=== PATIENT | female | born 2005 | race Caucasian/White ===

== ENCOUNTER 2024-01-15 11:03 | Day surgery (SDC) | payer OTHER, SELFPAY ==
[2024-01-15] VITALS (13 sets, daily range): BP systolic 107–153; BP diastolic 44–97; PULSE 94–125; RESP 12–22; TEMP 36.3–37; O2SAT 99–100
--- NOTE | ~2024-01-15 | CT_ITS ---
CT abdomen pelvis w con Ordering provider: Lyndsey Ralph History: 18 years Female with . RLQ pain . Comparison: None. Technique: CT abdomen and pelvis with IV and without oral contrast. Automated exposure control and it erative reconstruction technique were employed. The dose-length product was 307.14 mGy-cm. 100 mL Omnipaque 350 was given IV. Findings: VISUALIZED LOWER CHEST: Normal. UPPER ABDOMINAL ORGANS: Liver: Normal. Gallbladder: Normal. Spleen: Normal. Stomach/duodenum: Normal. Pancreas: Normal. Adrenals: Normal. Kidneys: Normal. PELVIC ORGANS: The bladder is normal. Uterus: Hypodensity seen in the lower uterus most likely nabothian cysts. Clinical correlation and fu rther evaluation advised. BOWEL AND MESENTERY: Colon: No evidence of diverticulitis. Tubular structure is seen in the right lower quadrant with thic kness of about 9 mm. Surrounding fat stranding is seen which is highly suggestive of appendicitis. Cl inical correlation advised. Small Bowel: Normal. No obstruction. Peritoneum/mesentery: No free air or free fluid. No mesenteric lymphadenopathy. RETROPERITONEUM: Normal aorta. No retroperitoneal lymphadenopathy. MUSCULOSKELETAL: Superficial soft tissues: The superficial soft tissues are normal. Bones: Normal spine. IMPRESSION: 1. Fat stranding in the right lower quadrant with tubular structure measuring 9 mm which is highly s uggestive of appendicitis and is seen in the retrocecal. Clinical correlation advised. 2. No evidence of obstruction, perforation or diverticulitis. 3. Hypodensity in the lower segment of the uterus which may be nabothian cysts. Further evaluation a dvised. Physician: Lyndsey Ralph Was notified with the result of the patient at 3:51 PM on January 15, 2024. Reviewed, dictated and finalized at location A. IMPRESSION: 1. Fat stranding in the right lower quadrant with tubular structure measuring 9 mm which is highly suggestive of appendicitis and is seen in the retrocecal. Clinical correlation advised. 2. No evidence of obstruction, perforation or diverticulitis. 3. Hypodensity in the lower segment of the uterus which may be nabothian cysts . Further evaluation advised. Physician: Lyndsey Ralph Was notified with the result of the patient at 3:51 PM on January 15, 2024.
--- NOTE | 2024-01-15 12:44 | ED.ABDPAIN ---
HPI - Abdominal Pain General Chief Complaint: Abdominal Pain <Lyndsey Ralph PA-C - Last Filed: 01/15/24 12:49> Stated Complaint: abd pain <Lyndsey Ralph PA-C - Last Filed: 01/15/24 12:49> Time Seen by Provider: 01/15/24 12:44 <Lyndsey Ralph PA-C - Last Filed: 01/15/24 12:49> Focused HPI: Patient is a 18 y/o female who presents to the ED with c/o R lower abdominal pain. Patient reports pain first began last night around 5 pm, became worse around 3am. Began in periumbilical region last night, now more localized to right lower abdomen. Denies hx of similar pain. Has not taken anything for pain. Denies N/V. Denies fevers. Denies dysuria, hematuria, vaginal bleeding. Denies hx of ovarian cysts. Patient had a vasovagal episode in triage bay after having blood drawn. Hx of similar events with previous blood draws. GENERAL: Well-appearing, well-nourished, and in no acute distress. HEAD: Normocephalic, atraumatic. CHEST: Clear to auscultation. ?No respiratory distress. HEART: Regular rate and rhythm.? ABD: TTP in RLQ, minimal tenderness in suprapubic region. NEURO: ?Alert and oriented x3. Patient screened in triage and initial orders placed.? ?Additional care and disposition to be based upon?diagnostic testing and treatment. <Lyndsey Ralph PA-C - Last Filed: 01/15/24 12:49> Source: patient <Lyndsey Ralph PA-C - Last Filed: 01/15/24 12:49> Mode of arrival: ambulatory <Lyndsey Ralph PA-C - Last Filed: 01/15/24 12:49> Limitations: no limitations <MEGA Chavez Last Filed: 01/15/24 12:49> History of Present Illness HPI narrative: Agree with HPI <Jamir Jacobo MD - Last Filed: 01/15/24 17:57> Related Data Allergies/Adverse Reactions: Allergies Allergy/AdvReac Type Severity Reaction Status Date / Time cephalexin [From Keflex] Allergy Rash Verified 01/15/24 12:16 <Lyndsey Ralph PA-C - Last Filed: 01/15/24 12:49> Review of Systems Review of Systems: All systems reviewed & are unremarkable except as noted in HPI and below <Jamir Jacobo MD - Last Filed: 01/15/24 17:57> Constitutional: Constitutional: Reports no additional constitutional complaints <Jamir Jacobo MD - Last Filed: 01/15/24 17:57> Cardiovascular: Cardiovascular: Reports no additional cardiovascular complaints <Jamir Jacobo MD - Last Filed: 01/15/24 17:57> Respiratory: Respiratory: Reports no additional respiratory complaints <Jamir Jacobo MD - Last Filed: 01/15/24 17:57> Gastrointestinal: Gastrointestinal: Reports abdominal pain, Denies nausea and Denies vomiting <Jamir Jacobo MD - Last Filed: 01/15/24 17:57> Genitourinary: Genitourinary: Reports no additional female genitourinary complaints <Jamir Jacobo MD - Last Filed: 01/15/24 17:57> [facility] Past Medical History Medical History: Medical History (Updated 01/15/24 @ 17:55 by Judson Carreon MD) Healthy female adult <Lyndsey Ralph PA-C - Last Filed: 01/15/24 12:49> Surgical History Surgical History: Surgical History (Updated 01/15/24 @ 17:55 by Jamir Jacobo MD) No history of previous surgery <Lyndsey Ralph PA-C - Last Filed: 01/15/24 12:49> Exam Narrative: GENERAL: Well-appearing, well-nourished, and in no acute distress. HEAD: Normocephalic, atraumatic. ENT: Mucous membranes moist. NECK: Supple. CHEST: Clear to auscultation. No respiratory distress. HEART: Regular rate and rhythm. Normal peripheral pulses. ABDOMEN: Soft, tender to palpation right lower quadrant guarding, nondistended. EXTREMITIES: Normal range of motion. No edema. SKIN: Warm, dry, no rash. NEURO: Alert and oriented x3. PSYCH: Normal mood and affect. <Jamir Jacobo MD - Last Filed: 01/15/24 17:57> Course Course Emergency Course: general surgery consulted. Will take to the OR. Last had some cookies at noon.
[2024-01-15 12:48] LABS: Basophils Absolute Auto 0.1 K/mm3 (0.0-0.1); Basophils Percent Auto 0.4 % (0.2-1.2); Eosinophils Absolute Auto 0.1 K/mm3 (0-0.3); Eosinophils Percent Auto 0.5 % (0-4.4); Hematocrit 40.4 % (37.0-47.0); Hemoglobin 13.5 g/dL (12.0-15.0); Immature Granulocyte Absolute 0.04 K/mm3 (0.00-0.031); Immature Granulocyte Percent A 0.3 % (0-0.5); Lymphocytes Absolute Auto 2.69 K/mm3 (0.9-3.2); Lymphocytes Percent Auto 17.7 % (18.3-44.2); Mean Corpuscular HGB Conc 33.4 g/dl (32-36); Mean Corpuscular Hemoglobin 29.3 pg (26-34); Mean Corpuscular Volume 87.8 fl (80-100); Mean Platelet Volume 11.1 fl (7.4-10.4); Monocytes Percent Auto 6.7 % (2.6-8.5); Neutrophils Absolute Auto 11.3 K/mm3 (1.3-6.7); Neutrophils Percent Auto 74.4 % (45.5-73.1); Platelet Count Result 306 k/mm3 (150-375); Red Cell Distribution Width 12.4 % (11.5-14.5); White Blood Count 15.2 K/mm3 (4.5-10.0)
[2024-01-15 13:05] LABS: Alanine Aminotransferase 33 U/L (6-35); Albumin Level 4.4 g/dL (3.5-5.1); Alkaline Phosphatase 64 U/L (38-126); Anion Gap 13 mmol/L (4-12); Aspartate Amino Transferase 23 U/L (14-36); Bilirubin,Total 0.5 mg/dL (0.2-1.3); Blood Urea Nitrogen 10 mg/dL (7-17); Calcium 9.3 mg/dL (8.4-10.2); Carbon Dioxide 23 mmol/L (22-30); Chloride 101 mmol/L (98-107); Estimated CRCL calculation 81 ml/min; Estimated Glomerular Filt Rate > 60; Glucose 97 mg/dL (65-110); Lipase 72 U/L (23-300); Potassium 3.6 mmol/L (3.4-5.0); Sodium 137 mmol/L (137-145)
[2024-01-15 14:28] LABS: Add Urine Microscopic? YES; Appearance Urine Cloudy (Clear); Bacteria Urine Rare /hpf; Bilirubin Urine Negative (Negative); Blood Urine Negative (Negative); Color Urine Dark Yellow (Yellow); Glucose Urine UA Negative (Negative); Ketones Urine Trace mg/dL (Negative); Leukocyte Esterase Ur Trace LEU/UL (Negative); Nitrate Urine Negative (Negative); Protein Urine 1+ mg/dL (Negative); RBC Urine 0-2 /hpf (0-2); Specific Grav Ur 1.023 (1.001-1.035); Squamous Epithelial Cell Urine Occasional /hpf (Few); WBC Urine 21-50 /hpf (0-3)
[2024-01-15 15:02] LABS: Pregnancy On Board Control Positive; Urine Pregnancy Test Negative
[2024-01-15] MEDS: SODIUM CHLORIDE 0.9% IV 1,000 ML 999 ML IV CONT (16:17)
--- NOTE | 2024-01-15 17:09 | WPDANESEPP ---
Anes - Eval Pre Procedure Procedure: lap appy Date/Time: 01/15/24 17:09 Pre Op Diagnosis: abd pain Patient Data Age: 18 Gender: F Height: 1.6 m Weight: 62.4 kg Last Vital Signs Temp 36.7 C 01/15/24 12:13 Pulse 94 01/15/24 12:13 Resp 20 01/15/24 12:13 BP 153/97 H 01/15/24 12:13 Pulse Ox 99 01/15/24 12:13 Allergies Allergy/AdvReac Type Severity Reaction Status Date / Time cephalexin [From Keflex] Allergy Rash Verified 01/15/24 12:16 Laboratory Tests 01/15/24 01/15/24 01/15/24 12:32 12:48 14:03 WBC 15.2 H K/mm3 (4.5-10.0) RBC 4.60 M/mm3 (4.2-5.4) Hgb 13.5 g/dL (12.0-15.0) Hct 40.4 % (37.0-47.0) MCV 87.8 fl (80-100) MCH 29.3 pg (26-34) MCHC 33.4 g/dl (32-36) RDW 12.4 % (11.5-14.5) Plt Count 306 k/mm3 (150-375) MPV 11.1 H fl (7.4-10.4) Immature Gran % (Auto) 0.3 % (0-0.5) Neut % (Auto) 74.4 H % (45.5-73.1) Lymph % (Auto) 17.7 L % (18.3-44.2) [place] % (Auto) 6.7 % (2.6-8.5) Eos % (Auto) 0.5 % (0-4.4) Baso % (Auto) 0.4 % (0.2-1.2) Lymph # (Auto) 2.69 K/mm3 (0.9-3.2) [place] # (Auto) 1.0 H K/mm3 (0.1-0.6) Eos # (Auto) 0.1 K/mm3 (0-0.3) Baso # (Auto) 0.1 K/mm3 (0.0-0.1) Abs Immat Gran (auto) 0.04 H K/mm3 (0.00-0.031) Absolute Neuts (auto) 11.3 H K/mm3 (1.3-6.7) Absolute Nucleated RBC 0.000 K/mm3 (0.0-0.012) Nucleated RBC % 0.0 % (0.0-0.2) Sodium 137 mmol/L (137-145) Potassium 3.6 mmol/L (3.4-5.0) Chloride 101 mmol/L (98-107) Carbon Dioxide 23 mmol/L (22-30) Anion Gap 13 H mmol/L (4-12) BUN 10 mg/dL (7-17) Creatinine 0.80 mg/dL (0.7-1.0) Estim Creat Clear Calc 81 ml/min Estimated GFR > 60 (59 - ) Glucose 97 mg/dL (65-110) Calcium 9.3 mg/dL (8.4-10.2) Total Bilirubin 0.5 mg/dL (0.2-1.3) AST 23 U/L (14-36) ALT 33 U/L (6-35) Alkaline Phosphatase 64 U/L (38-126) Total Protein 8.0 g/dL (6.3-8.2) Albumin 4.4 g/dL (3.5-5.1) Lipase 72 U/L (23-300) Urine Color Dark yellow (Yellow) Urine Appearance Cloudy H (Clear) Urine pH 8.0 (5.0-9.0) Ur Specific [place] 1.023 (1.001-1.035) Urine Protein 1+ H mg/dL (Negative) Urine Glucose (UA) Negative mg/dL (Negative) Urine Ketones Trace H mg/dL (Negative) Ur Blood (Man) Negative (Negative) Urine Nitrate Negative (Negative) Urine Bilirubin Negative (Negative) Urine Urobilinogen 1.0 mg/dL (<2.0) Leukocyte Esterase Rfl Trace H HODAN/UL (Negative) Urine RBC 0-2 /hpf (0-2) Urine WBC 21-50 H /hpf (0-3) Ur Squamous Epith Cells Occasional /hpf (Few) Urine Bacteria Rare /hpf Urine Casts 3-5 Urine Test Negative Patient hx anesthesia problems: none Family hx anesthesia problems: none Results Review: All pre-operative results and documents have been reviewed as part of the pre-operative evaluation. Exam Day of Procedure 01/15/24 17:09 Patient weight: normal Heart: regular rate and rhythm Lungs: normal air movement Airway: Mallampati scale Neurological: alert and oriented
[2024-01-15] MEDS: metroNIDAZOLE 500 MG/ISO 100ML 500 MG/100 ML BAG 100 MG IVPB (17:23)
--- NOTE | 2024-01-15 17:51 | PM.IMHP ---
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 About 24hours ago she started having mid lower abdominal pain which over the course of the last 24 has localized the right lower quadrant of the abdomen. No nausea, vomiting, or diarrhea. She has never had pain like this in the past. Workup in the emergency room [place] [address] scan abdomen pelvis showed a dilated and acutely inflamed appendix without evidence of perforation or periappendiceal abscess as per radiology report. She has a history of depression but otherwise is a healthy 18-year-old. She has never had any surgery other than wisdom teeth extraction in the past. Review of Systems Review of Systems: The remainder of the review of systems to include constitutional, HEENT, cardiovascular, respiratory, GI, , integumentary, musculoskeletal, endocrine, immunologic, hematologic, psychiatric, and neurologic are all negative except for which is mentioned above in the HPI. [facility] Past Medical History Medical History (Updated 01/15/24 @ 17:55 by Judson Carreon MD) Healthy female adult Surgical History Surgical History (Updated 01/15/24 @ 17:55 by Jamir Jacobo MD) No history of previous surgery Meds Home Medications and Allergies Allergies Allergy/AdvReac Type Severity Reaction Status Date / Time cephalexin [From Keflex] Allergy Rash Verified 01/15/24 12:16 Vital Signs Vital Signs - 24 hr 01/15/24 12:13 01/15/24 17:26 Temperature 36.7 C 37.0 C Pulse Rate 94 116 H Respiratory Rate 20 16 Blood Pressure 153/97 H 148/96 H Pulse Oximetry 99 100 Exam Const: General: comfortable and no acute distress HENMT: Ears: TM's normal bilaterally Face/Nose/Sinus: Normal nares present Mouth: Yes moist mucous membranes Eyes: General: appearance normal, both eyes and all related structures Sclera: sclerae normal Pupils: Equal, round and reactive pupils present EOM: EOMs intact bilaterally Neck: Neck: supple and no JVD Resp: Effort & Inspection: normal respiratory effort Auscultation: clear to auscultation bilaterally Cardio: Rate: regular rate Rhythm: regular rhythm GI: Other: Abdomen is soft and nondistended. She has some [id number] tenderness to deep palpation in medial right lower quadrant the abdomen. No masses appreciated no surgical scars or ventral hernias are noted. She has minimal guarding and no diffuse peritoneal signs. Skin: General skin exam: normal color and no rashes or lesions noted Neuro: General: gait normal Speech: normal speech Motor exam (neuro): 5/5 motor strength present throughout and Motor abnormalites present Sensory Exam: normal sensation Extrem: General: normal to inspection Psych: Mental Status: mental status grossly normal Affect: normal affect H&P: Results Labs Labs: Short CBC 01/15/24 Range/Units 12:32 WBC 15.2 H (4.5-10.0) K/mm3 Hgb 13.5 (12.0-15.0) g/dL Hct 40.4 (37.0-47.0) % Plt Count 306 (150-375) k/mm3 BMP 01/15/24 12:32 Sodium 137 Potassium 3.6 Chloride 101 Carbon Dioxide 23 BUN 10 Creatinine 0.80 Glucose 97 Calcium 9.3 Liver Function 01/15/24 Range/Units 12:32 Total Bilirubin 0.5 (0.2-1.3) mg/dL AST 23 (14-36) U/L ALT 33 (6-35) U/L Alkaline Phosphatase 64 (38-126) U/L Albumin 4.4 (3.5-5.1) g/dL Urine 01/15/24 Range/Units 14:03 Urine Color Dark yellow (Yellow) Urine Appearance Cloudy H (Clear) Urine pH 8.0 (5.0-9.0) Ur Specific [place] 1.023 (1.001-1.035) Urine Protein 1+ H (Negative) mg/dL Urine Glucose (UA) Negative (Negative) mg/dL Assessment and Plan Assessment and plan (1) Acute appendicitis: Code(s): K35.80 - Unspecified acute appendicitis
[2024-01-15] MEDS: levoFLOXacin 750 MG/D5W 150 ML 750 MG/150 ML BAG 100 MG IVPB (18:26)
--- NOTE | 2024-01-15 18:26 | P.PNAN_ITS ---
Anes - Eval Final PreProcedure Day of Procedure 01/15/24 18:26 Patient weight: normal Heart: regular rate and rhythm Lungs: clear to auscultation Airway: Mallampati scale class II Neurological: alert and oriented Last oral intake: >/= 8 hours ASA classification: II Emergent: yes Anesthetic plan: proceed Anesthesia type and monitoring: general ETT and standard monitoring Results Review: All pre-operative results and documents have been reviewed as part of the pre- operative evaluation. Informed Consent: The patient's anesthetic plan and its attendant risks and benefits were discussed with the patient/family/POA. Questions were solicited and answers provided to the satisfaction of the patient/family/POA.
[2024-01-15] MEDS: SCOPOLAMINE 1 MG PATCH 1 PATCH TRANSDERM (18:29)
[2024-01-15] MEDS: LIDO 1%/EPINEPHRINE 1:100,000 20 ML VIAL INFILTRATE (19:23)
[2024-01-15] MEDS: BUPIVACAINE/EPINEPHRINE 0.5% 50 ML VIAL 20 ML INFILTRATE (19:23)
[2024-01-15] MEDS: KETOROLAC 30 MG/ML VIAL (*BKC) IV PUSH (19:25)
[2024-01-15] MEDS: LACTATED RINGERS 1,000 ML 30 ML IV CONT ×3 (19:44→20:18)
--- NOTE | 2024-01-15 19:44 | W.PM.PROC2 ---
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 Workup in the emergency room [place] [address] scan abdomen pelvis showed a dilated tubular structure in right lower quadrant with some surrounding inflammation. No perforation parents abscess was seen. She presents for emergent laparoscopic appendectomy. Findings Patient had long appendix. Extended medial to lateral in a retrocecal position. The only portion of the appendix which was actually inflamed was the distal 1 to 2 cm at the tip. The majority of the appendix and the base of the appendix was completely normal. Description of Procedure After informed consent was obtained patient brought to the operating room where she was placed supine position and general endotracheal anesthesia was administered. A Hebert catheter was placed decompress the bladder the abdomen was then prepped draped usual sterile fashion. I entered the abdomen left upper quadrant utilizing a 5mm Optiview port. Once inside the abdomen I insufflated to an adequate pneumoperitoneum of 15 mmHg of CO2. I then placed additional trocar ports to include a 12mm periumbilical trocar port, a 5mm suprapubic trocar port and a 5mm right lower quadrant trocar port all under direct visualization. The patient had a very mobile and floppy cecum on a long mesentery. I reflected the cecum upwards to find the retrocecal appendix. The appendix appeared to be normal at the base and it was very long and it extended in a retrocecal position. The vast majority the appendix was normal in appearance. The very tip of the appendix being the last 1 to 2 cm of the appendix was actually inflamed. There was no perforation or periappendiceal abscess. I elevated the appendix at the base and then made a defect through the mesoappendix utilizing a [place] dissector. I then utilized a 45mm Endo-GREY stapler to divide the appendix flush with the cecum. The mesoappendix was then divided with 3 vascular reloads to the Endo-GREY stapler. Once the appendix was completely free was placed into an Endo-Catch bag and brought out through the periumbilical trocar port site. It was sent off table sent to pathology for examination. I then checked the staple lines and they were all hemostatic. I then irrigated out the right lower quadrant the abdomen and aspirated the fluid from the pelvis. I then removed all the trocar ports under direct visualization all port sites appeared to be hemostatic. I then allowed the abdomen decompress. I then irrigated out the port sites sterile saline solution hemostasis was good. I then closed the 12mm periumbilical trocar port fascial defect utilizing 0 Vicryl suture at the fascial level. The skin edges all the port sites were then closed utilizing a running subcuticular 4 Monocryl suture. The incisions were then cleaned the skin glue sterile dressings were applied. The patient tolerated the procedure well no complications. All sponges, needles, and instrument counts were correct at the end procedure. EBL was _ 25 __cc. The patient was awakened and taken to recovery in stable and satisfactory condition. Implants None Estimated Blood Loss 25 Drains No Packing No Pathology Yes (Appendix to pathology) Complications No immediate complications Condition Stable Disposition PACU [facility] Billing Surgery - Charge Forward: Surgery Billing
[2024-01-15] MEDS: ONDANSETRON INJ 4 MG/2 ML VIAL IV PUSH (21:02)
[2024-01-15] MEDS: diphenhydrAMINE HCl INJ 50 MG/ML VIAL 12.5 MG IV PUSH (21:20)
[2024-01-15] MEDS: dexAMETHasone SOD PHOS INJ 4 MG/ML VIAL IV PUSH (21:20)
== END 2024-01-15 22:50 | disposition home or self-care (01) ==
LOC: ANHED 16:58 → ANHSURGERY 17:08
PROVIDERS: Emergency Medicine; Emergency Provider Emergency Medicine; Visit Provider Surgery
PROC: 0DTJ4ZZ Resection of Appendix, Percutaneous Endoscopic Approach (ICD-10-PCS; CPT 44970; principal; 2024-01-15 18:00)
DX: K35.80 Unspecified acute appendicitis (principal)
CPT/HCPCS: 44970; 36415; 74177; 80053; 81001; 81025; 83690; 85025; 87086; 88304; 96361; 96374; 99285; A9270; J0330; J1100; J1170; J1200; J1836; J1885; J1956; J2250; J2270; J2405; J2704; J3010; J7030; J7120; Q9967